=== PATIENT | male | born 1995 | race Caucasian/White ===

== ENCOUNTER 2018-09-25 16:26 | Emergency (ER) | payer OTHER ==
--- NOTE | 2018-09-25 16:52 | ER Report ---
History and Physical Time Seen By MD: 16:41 Hx. of Stated Complaint: PT REPORTS L ARM PAIN FROM SNOWBOARDING ACCIDENT HPI/ROS CHIEF COMPLAINT: left arm pain HISTORY OF PRESENT ILLNESS: 23 year old male presents with left arm pain. Reports he was snowboarding and fell approximately 3 hours ago. He fell on his left hand and elbow. Reports pain from elbow down to his fingers. Pain is a 9 out of 10 and is sharp and stabbing. Denies any loss of sensation. Denies taking anything for the pain. Denies hitting his head when he fell. REVIEW OF SYSTEMS: Respiratory: No cough, no dyspnea. Cardiovascular: No chest pain, no palpitations. Gastrointestinal: No vomiting, no abdominal pain. Musculoskeletal: [No back pain. Reports pain to left arm from elbow to fingers. Denies left rib pain. Allergies: Coded Allergies: No Known Drug Allergies (Unverified , 09/25/18) Home Meds Active Scripts Hydrocodone Bit/Acetaminophen (HYDROCODON-ACETAMINOPHEN 5-325) 1 Each Tablet, 1 EACH PO Q4-6H PRN for PAIN, #12 TAB Prov:CHARBEL MENDEZ 09/25/18 Past Medical/Surgical History Patient has a past medical history of right wrist fracture. Patient has no pertinent surgical history. Reviewed Nurses Notes: Yes Constitutional Vital Sign - Last 24 Hours 09/25/18 09/25/18 16:35 18:06 Temp 97.8 Pulse 90 80 Resp 16 16 B/P (MAP) 139/83 139/83 (101) Pulse Ox 96 96 O2 Delivery Room Air Room Air Physical Exam General Appearance: The patient is alert, has no immediate need for airway protection and no current signs of toxicity. Eyes: Pupils equal and round no injection. Respiratory: Chest is non tender, lungs are clear to auscultation. Cardiac: regular rate and rhythm Gastrointestinal: Abdomen is soft and non tender, no masses, bowel sounds normal. Musculoskelatal: Swelling around carpal bones noted. Patient reports sharp pain to palpation of right distal radius, anatomical snuff box, and carpal bones both posteriorly and anteriorly. Reports sensation to all fingers. Patient reports dull pain to palpation of antecubital area and bicep muscle. Denies pain with palpation to shoulder, later and medial epicondyles, and ulna. Patient has limited range of motion, approximately 30 degrees with each finger flexion and extension and thumb adduction and adduction. Skin: No rashes or lesions. DIFFERENTIAL DIAGNOSIS: After history and physical exam differential diagnosis was considered for radial fracture, scaphoid bone fracture, ligament tear, tendon tear, sprain, and strain. Medical Decision Making EKG/Imaging Imaging Findings: There is an impacted fracture at the articular surface of the distal left radius. The distal ulnar is intact. The carpal bones, and the phalanges and metacarpals are intact. There is soft tissue swelling of the wrist. IMPRESSION: 1. Comminuted impacted fracture distal left radius. 2. Remaining bones of the hand are intact. ED Course/Re-evaluation ED Course Patient admitted to an exam room, hisotry and physical obtained, differentials considered. Patient reports he fell on left hand and elbow while snow boarding approximately three hours ago. Reports sharp left radial and carpal bone pain, including pain at anatomical snuff box. X-rays obtained. Findings show comminuted impacted fracture to distal left radius; remaining bones of the hand are intact. Left arm splinted in a sugar tong splint. Hydrocodone/acetaminophen prescribed for pain relief. Patient to follow-up with orthopedic next week. Splint is to be left in place until he sees orthopedic. Procedure: Splint placement. A sugar tong static splint was applied. After application of the splint I returned and re-examined the patient. The splint was adequately immobilizing the joint and distal to the splint the patient's circulation and sensation was intact. Decision to Disposition Date: Sep 25, 2018 Decision to Disposition Time: 17:55 Depart Departure Latest Vital Signs Vital Signs Date Time Temp Pulse Resp B/P (MAP) Pulse Ox O2 Delivery O2 Flow Rate FiO2 09/25/18 18:06 80 16 139/83 (101) 96 Room Air 09/25/18 16:35 97.8 Impression: Primary Impression: Distal radius fracture Condition: Improved Disposition: HOME OR SELF-CARE Referrals: MARTI ANTON MD New Scripts Hydrocodone Bit/Acetaminophen (HYDROCODON-ACETAMINOPHEN 5-325) 1 Each Tablet 1 EACH PO Q4-6H PRN for PAIN, #12 TAB Prov: ANDREACHARBEL HAYDEN 09/25/18 Patient Instructions: Wrist Fracture in Adults (ED) Additional Instructions: Limit activity by pain. Ice the wrist through the splint; 2-3 times a day for 20-30 minutes. If the splint is feeling too tight you may loosen the vickie wrap and rewrap it. Follow up with [facility], call Friday to make an appointment. Keep the splint dry, wrap it with a bag and tape to keep the water out. Return to the ER with uncontrollable pain or numbness to the hand. You may take Ibuprofen as needed for pain in addition to the pain medication. Don't take any additional Tylenol while on the pain medication. Problem Qualifiers Primary Impression: Distal radius fracture Encounter type: initial encounter Fracture type: closed Fracture morphology: other fracture Laterality: left Qualified Codes: S52.592A - Other fractures of lower end of left radius, initial encounter for closed fracture CHARBEL MENDEZ Sep 25, 2018 16:52
[2018-09-25] MEDS ORDERED: KETOROLAC TROM 10MG TAB PO ONE (17:00)
--- NOTE | 2018-09-25 17:42 | RADIOLOGY IMAGING REPORT ---
FACILITY: [facility] [place] PATIENT NAME: Matt Sanchez : 1995 MR: [id number] V: [id number] EXAM DATE: ORDERING PHYSICIAN: CHARBEL MENDEZ TECHNOLOGIST: Location: [facility] [place] Patient: Matt Sanchez : 1995 Visit/Account:[id number] Date of Sevice: 09/25/2018 HUMERUS LEFT Indication: fall with pain Comparison: None. Findings: The left humerus is intact. There is no soft tissue swelling. IMPRESSION: Normal left humerus radiograph. Report Dictated By: Garcia Palacios at 09/25/2018 5:37 PM Report E-Signed By: Garcia Palacios at 09/25/2018 5:38 PM WSN:[id number]
--- NOTE | 2018-09-25 17:43 | RADIOLOGY IMAGING REPORT ---
FACILITY: [facility] [place] PATIENT NAME: Matt Sanchez : 1995 MR: [id number] V: [id number] EXAM DATE: ORDERING PHYSICIAN: CHARBEL MENDEZ TECHNOLOGIST: Location: [facility] [place] Patient: Matt Sanchez : 1995 Visit/Account:[id number] Date of Sevice: 09/25/2018 HAND COMPLETE LEFT Indication: fall with pain Comparison: None. Findings: There is an impacted fracture at the articular surface of the distal left radius. The dista l ulnar is intact. The carpal bones, and the phalanges and metacarpals are intact. There is soft tiss ue swelling of the wrist. IMPRESSION: 1. Comminuted impacted fracture distal left radius. 2. Remaining bones of the hand are intact. Report Dictated By: Garcia Palacios at 09/25/2018 5:39 PM Report E-Signed By: Garcia Palacios at 09/25/2018 5:40 PM WSN:[id number]
--- NOTE | 2018-09-25 17:45 | RADIOLOGY IMAGING REPORT ---
FACILITY: [facility] [place] PATIENT NAME: Matt Sanchez : 1995 MR: [id number] V: [id number] EXAM DATE: ORDERING PHYSICIAN: CHARBEL MENDEZ TECHNOLOGIST: Location: [facility] Patient: Matt Sanchez : 1995 Visit/Account:[id number] Date of Sevice: 09/25/2018 FOREARM LEFT Indication: fall with pain Comparison: None. Findings: There is an impacted fracture at the articular surface of the left radius. The proximal por tions of the radius and the ulna are intact. There is soft tissue swelling of the wrist. IMPRESSION: Comminuted impacted fracture distal left radius. Report Dictated By: Garcia Palacios at 09/25/2018 5:40 PM Report E-Signed By: Garcia Palacios at 09/25/2018 5:41 PM WSN:[id number]
[2018-09-25] MEDS ORDERED: HYDR-385 PO (17:57)
[2018-09-25 18:06] VITALS: BP 139/83
== END 2018-09-25 18:07 | disposition home or self-care (01) ==
LOC: ER 16:46
DX: S52.592A Other fractures of lower end of left radius, initial encounter for closed fracture (principal); W18.39XA Other fall on same level, initial encounter; Y93.23 Activity, snow (alpine) (downhill) skiing, snowboarding, sledding, tobogganing and snow tubing
CPT/HCPCS: 29125; 73060; 73090; 73130; 99284; A4565